=== PATIENT | female | born 1990 | race Asian ===

== ENCOUNTER 2020-10-04 16:04 | Emergency (ER) | payer MEDICARE, OTHER ==
[~2020-10-04] VITALS: Ht 154.9 cm; Wt 50.0 kg
[2020-10-04] MEDS ORDERED: BACL10TA PO ×2 (18:28)
[2020-10-04] MEDS ORDERED: CARB100T53 PO (18:28)
[2020-10-04] MEDS ORDERED: CALC-911 PO (18:28)
[2020-10-04 23:00] VITALS: BP 150/79
== END 2020-10-04 23:19 | disposition home or self-care (01) ==
LOC: EMS 16:12
DX: M54.5 Low back pain (principal); Z79.899 Other long term (current) drug therapy; W05.0XXA Fall from non-moving wheelchair, initial encounter; Y93.89 Activity, other specified; Y92.89 Other specified places as the place of occurrence of the external cause; Y99.8 Other external cause status
CPT/HCPCS: 72100; 73503; 99284